=== PATIENT | male | born 1950 | race Caucasian/White ===

== ENCOUNTER 2016-12-12 08:26 | Outpatient (CLI) | payer MEDICARE, OTHER ==
[2015-10-23 16:41] VITALS: BP 147/79
== END 2016-12-12 08:27 ==
LOC: LAB 08:26
PROVIDERS: ATTEND Internal Medicine Cardiovascular Disease
DX: Z51.81 Encounter for therapeutic drug level monitoring (principal); Z95.2 Presence of prosthetic heart valve
CPT/HCPCS: 36415; 85610

== ENCOUNTER 2016-12-26 13:57 | Outpatient (CLI) | payer MEDICARE, OTHER ==
[2015-10-23 16:41] VITALS: BP 147/79
== END 2016-12-26 14:00 ==
LOC: LAB 13:57
PROVIDERS: ATTEND Internal Medicine Cardiovascular Disease
DX: Z95.2 Presence of prosthetic heart valve (principal); Z79.01 Long term (current) use of anticoagulants
CPT/HCPCS: 36415; 85610

== ENCOUNTER 2017-01-29 09:31 | Outpatient (CLI) | payer MEDICARE, OTHER ==
[2015-10-23 16:41] VITALS: BP 147/79
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
== END 2017-01-29 09:35 ==
LOC: RAD 09:31
PROVIDERS: ATTEND Physician Assistant
DX: M79.1 Myalgia (principal)
CPT/HCPCS: 73521

== ENCOUNTER 2017-01-30 10:05 | Outpatient (CLI) | payer MEDICARE, OTHER ==
[2015-10-23 16:41] VITALS: BP 147/79
== END 2017-01-30 11:00 ==
LOC: LAB 10:05
PROVIDERS: ATTEND Internal Medicine Cardiovascular Disease
DX: Z51.81 Encounter for therapeutic drug level monitoring (principal); Z79.01 Long term (current) use of anticoagulants; Z95.2 Presence of prosthetic heart valve
CPT/HCPCS: 36415; 85610

== ENCOUNTER 2017-02-14 10:31 | Outpatient (CLI) | payer MEDICARE, OTHER ==
[2015-10-23 16:41] VITALS: BP 147/79
== END 2017-02-14 10:32 ==
LOC: LAB 10:31
PROVIDERS: ATTEND Internal Medicine Cardiovascular Disease
DX: Z51.81 Encounter for therapeutic drug level monitoring (principal); Z79.01 Long term (current) use of anticoagulants; Z95.2 Presence of prosthetic heart valve
CPT/HCPCS: 36415; 85610

== ENCOUNTER 2017-03-20 10:42 | Outpatient (CLI) | payer MEDICARE, OTHER ==
[2015-10-23 16:41] VITALS: BP 147/79
== END 2017-03-20 10:43 ==
LOC: LAB 10:42
PROVIDERS: ATTEND Internal Medicine Cardiovascular Disease
DX: Z51.81 Encounter for therapeutic drug level monitoring (principal); Z79.01 Long term (current) use of anticoagulants; Z95.2 Presence of prosthetic heart valve
CPT/HCPCS: 36415; 85610

== ENCOUNTER 2017-05-01 13:10 | Outpatient (CLI) | payer MEDICARE, OTHER ==
[2015-10-23 16:41] VITALS: BP 147/79
== END 2017-05-01 13:11 ==
LOC: LAB 13:10
PROVIDERS: ATTEND Internal Medicine Cardiovascular Disease
DX: Z95.2 Presence of prosthetic heart valve (principal)
CPT/HCPCS: 36415; 85610

== ENCOUNTER 2017-06-08 10:30 | Outpatient (CLI) | payer MEDICARE, OTHER ==
[2015-10-23 16:41] VITALS: BP 147/79
== END 2017-06-08 10:32 ==
LOC: LAB 10:30
PROVIDERS: ATTEND Internal Medicine Cardiovascular Disease
DX: Z95.2 Presence of prosthetic heart valve (principal)
CPT/HCPCS: 36415; 85610

== ENCOUNTER 2017-07-17 14:12 | Outpatient (CLI) | payer MEDICARE, OTHER ==
[2015-10-23 16:41] VITALS: BP 147/79
== END 2017-07-17 14:13 ==
LOC: LAB 14:12
PROVIDERS: ATTEND Internal Medicine Cardiovascular Disease
DX: Z95.2 Presence of prosthetic heart valve (principal)
CPT/HCPCS: 36415; 85610

== ENCOUNTER 2017-08-14 12:21 | Outpatient (CLI) | payer MEDICARE, OTHER ==
[2015-10-23 16:41] VITALS: BP 147/79
== END 2017-08-14 12:22 ==
LOC: LAB 12:21
PROVIDERS: ATTEND Internal Medicine Cardiovascular Disease
DX: Z95.2 Presence of prosthetic heart valve (principal); Z79.01 Long term (current) use of anticoagulants
CPT/HCPCS: 36415; 85610

== ENCOUNTER 2017-09-26 09:49 | Outpatient (CLI) | payer MEDICARE, OTHER ==
[2015-10-23 16:41] VITALS: BP 147/79
== END 2017-09-26 09:50 ==
LOC: LAB 09:49
PROVIDERS: ATTEND Internal Medicine Cardiovascular Disease
DX: Z95.2 Presence of prosthetic heart valve (principal); Z79.01 Long term (current) use of anticoagulants
CPT/HCPCS: 36415; 85610

== ENCOUNTER 2017-11-07 09:27 | Outpatient (CLI) | payer MEDICARE, OTHER ==
[2015-10-23 16:41] VITALS: BP 147/79
== END 2017-11-07 11:13 ==
LOC: LAB 09:27
PROVIDERS: ATTEND Internal Medicine Cardiovascular Disease
DX: Z95.2 Presence of prosthetic heart valve (principal); Z51.81 Encounter for therapeutic drug level monitoring
CPT/HCPCS: 36415; 85610

== ENCOUNTER 2017-12-11 11:48 | Outpatient (CLI) | payer MEDICARE, OTHER ==
[2015-10-23 16:41] VITALS: BP 147/79
== END 2017-12-11 11:50 ==
LOC: CARD 11:48
PROVIDERS: ATTEND Internal Medicine Cardiovascular Disease
DX: Z95.2 Presence of prosthetic heart valve (principal); G47.30 Sleep apnea, unspecified
CPT/HCPCS: G0463

== ENCOUNTER 2017-12-25 11:16 | Outpatient (CLI) | payer MEDICARE, OTHER ==
[2015-10-23 16:41] VITALS: BP 147/79
== END 2017-12-25 11:17 ==
LOC: LAB 11:16
PROVIDERS: ATTEND Internal Medicine Cardiovascular Disease
DX: Z95.2 Presence of prosthetic heart valve (principal); Z51.81 Encounter for therapeutic drug level monitoring
CPT/HCPCS: 36415; 85610

== ENCOUNTER 2018-01-24 11:19 | Outpatient (CLI) | payer MEDICARE, OTHER ==
[2015-10-23 16:41] VITALS: BP 147/79
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
== END 2018-01-24 11:20 ==
LOC: RAD 11:19
PROVIDERS: ATTEND Physician Assistant
DX: M25.552 Pain in left hip (principal); M79.1 Myalgia

== ENCOUNTER 2018-02-07 14:32 | Outpatient (CLI) | payer MEDICARE, OTHER ==
[2015-10-23 16:41] VITALS: BP 147/79
== END 2018-02-07 14:44 ==
LOC: LAB 14:32
PROVIDERS: ATTEND Internal Medicine Cardiovascular Disease
DX: Z95.2 Presence of prosthetic heart valve (principal); Z79.899 Other long term (current) drug therapy
CPT/HCPCS: 36415; 85610

== ENCOUNTER 2018-02-15 13:52 | Outpatient (CLI) | payer MEDICARE, OTHER ==
[2015-10-23 16:41] VITALS: BP 147/79
== END 2018-02-15 13:53 ==
LOC: POD 13:52
PROVIDERS: ATTEND Podiatrist
DX: B07.0 Plantar wart (principal); B35.1 Tinea unguium; M79.674 Pain in right toe(s); M79.675 Pain in left toe(s)
CPT/HCPCS: 11721; G0463

== ENCOUNTER 2018-03-12 13:39 | Outpatient (CLI) | payer MEDICARE, OTHER ==
[2015-10-23 16:41] VITALS: BP 147/79
== END 2018-03-12 13:40 ==
LOC: POD 13:39
PROVIDERS: ATTEND Podiatrist
DX: B07.0 Plantar wart (principal); B35.1 Tinea unguium; M79.674 Pain in right toe(s); M79.675 Pain in left toe(s)
CPT/HCPCS: G0463

== ENCOUNTER 2018-03-26 09:47 | Outpatient (CLI) | payer MEDICARE, OTHER ==
[2015-10-23 16:41] VITALS: BP 147/79
== END 2018-03-26 09:50 ==
LOC: LAB 09:47
PROVIDERS: ATTEND Internal Medicine Cardiovascular Disease
DX: Z95.2 Presence of prosthetic heart valve (principal); Z79.899 Other long term (current) drug therapy
CPT/HCPCS: 36415; 85610

== ENCOUNTER 2018-05-14 13:52 | Outpatient (CLI) | payer MEDICARE, OTHER ==
[2015-10-23 16:41] VITALS: BP 147/79
== END 2018-05-14 13:53 ==
LOC: LAB 13:52
PROVIDERS: ATTEND Internal Medicine Cardiovascular Disease
DX: Z95.2 Presence of prosthetic heart valve (principal); Z79.01 Long term (current) use of anticoagulants
CPT/HCPCS: 36415; 85610

== ENCOUNTER 2018-06-19 10:50 | Outpatient (CLI) | payer MEDICARE, OTHER ==
[2015-10-23 16:41] VITALS: BP 147/79
== END 2018-06-19 10:53 ==
LOC: LAB 10:50
PROVIDERS: ATTEND Internal Medicine Cardiovascular Disease
DX: Z95.2 Presence of prosthetic heart valve (principal); Z79.01 Long term (current) use of anticoagulants
CPT/HCPCS: 36415; 85610

== ENCOUNTER 2018-07-16 09:21 | Outpatient (CLI) | payer MEDICARE, OTHER ==
[2015-10-23 16:41] VITALS: BP 147/79
== END 2018-07-16 09:22 ==
LOC: LAB 09:21
PROVIDERS: ATTEND Physician Assistant
DX: Z79.1 Long term (current) use of non-steroidal anti-inflammatories (NSAID) (principal); Z95.2 Presence of prosthetic heart valve
CPT/HCPCS: 36415; 85610

== ENCOUNTER 2018-07-22 09:21 | Outpatient (CLI) | payer MEDICARE, OTHER ==
[2015-10-23 16:41] VITALS: BP 147/79
== END 2018-07-22 09:23 ==
LOC: LAB 09:21
PROVIDERS: ATTEND Internal Medicine Cardiovascular Disease
DX: Z79.01 Long term (current) use of anticoagulants (principal); Z95.2 Presence of prosthetic heart valve
CPT/HCPCS: 36415; 85610

== ENCOUNTER 2018-08-01 10:33 | Outpatient (CLI) | payer MEDICARE, OTHER ==
[2015-10-23 16:41] VITALS: BP 147/79
== END 2018-08-01 10:35 ==
LOC: LAB 10:33
PROVIDERS: ATTEND Internal Medicine Cardiovascular Disease
DX: Z95.2 Presence of prosthetic heart valve (principal); Z79.01 Long term (current) use of anticoagulants
CPT/HCPCS: 36415; 85610

== ENCOUNTER 2018-08-26 10:28 | Outpatient (CLI) | payer MEDICARE, OTHER ==
[2015-10-23 16:41] VITALS: BP 147/79
== END 2018-08-26 10:30 ==
LOC: LAB 10:28
PROVIDERS: ATTEND Internal Medicine Cardiovascular Disease
DX: Z95.2 Presence of prosthetic heart valve (principal); Z79.01 Long term (current) use of anticoagulants
CPT/HCPCS: 36415; 85610

== ENCOUNTER 2018-09-19 10:13 | Outpatient (CLI) | payer MEDICARE, OTHER ==
[2015-10-23 16:41] VITALS: BP 147/79
== END 2018-09-19 15:26 ==
LOC: LAB 10:13
PROVIDERS: ATTEND Internal Medicine Cardiovascular Disease
DX: Z95.2 Presence of prosthetic heart valve (principal); Z79.01 Long term (current) use of anticoagulants
CPT/HCPCS: 36415; 85610

== ENCOUNTER 2018-10-21 08:47 | Outpatient (CLI) | payer MEDICARE, OTHER ==
[2015-10-23 16:41] VITALS: BP 147/79
== END 2018-10-21 08:50 ==
LOC: LAB 08:47
PROVIDERS: ATTEND Internal Medicine Cardiovascular Disease
DX: Z95.2 Presence of prosthetic heart valve (principal)
CPT/HCPCS: 36415; 85610

== ENCOUNTER 2018-11-27 11:02 | Outpatient (CLI) | payer MEDICARE, OTHER ==
[2015-10-23 16:41] VITALS: BP 147/79
== END 2018-11-27 11:04 ==
LOC: LAB 11:02
PROVIDERS: ATTEND Internal Medicine Cardiovascular Disease
DX: Z79.01 Long term (current) use of anticoagulants (principal)
CPT/HCPCS: 36415; 85610

== ENCOUNTER 2018-12-18 09:57 | Outpatient (CLI) | payer OTHER ==
[2015-10-23 16:41] VITALS: BP 147/79
== END 2018-12-18 10:10 ==
LOC: LAB 09:57
PROVIDERS: ATTEND Internal Medicine Cardiovascular Disease
DX: Z95.2 Presence of prosthetic heart valve (principal); Z79.01 Long term (current) use of anticoagulants; Z51.81 Encounter for therapeutic drug level monitoring
CPT/HCPCS: 36415; 85610

== ENCOUNTER 2019-01-22 10:13 | Outpatient (CLI) | payer OTHER ==
[2015-10-23 16:41] VITALS: BP 147/79
== END 2019-01-22 10:15 ==
LOC: LAB 10:13
PROVIDERS: ATTEND Internal Medicine Cardiovascular Disease
DX: Z79.01 Long term (current) use of anticoagulants (principal); Z95.2 Presence of prosthetic heart valve
CPT/HCPCS: 36415; 85610

== ENCOUNTER 2019-02-20 13:11 | Outpatient (CLI) | payer OTHER ==
[2015-10-23 16:41] VITALS: BP 147/79
== END 2019-02-20 13:13 ==
LOC: LAB 13:11
PROVIDERS: ATTEND Internal Medicine Cardiovascular Disease
DX: Z79.01 Long term (current) use of anticoagulants (principal); Z95.2 Presence of prosthetic heart valve
CPT/HCPCS: 36415; 85610

== ENCOUNTER 2019-02-26 12:01 | Outpatient (CLI) | payer OTHER ==
[2015-10-23 16:41] VITALS: BP 147/79
== END 2019-02-26 12:03 ==
LOC: LAB 12:01
PROVIDERS: ATTEND Internal Medicine Cardiovascular Disease
DX: Z79.01 Long term (current) use of anticoagulants (principal); Z95.2 Presence of prosthetic heart valve
CPT/HCPCS: 36415; 85610

== ENCOUNTER 2019-03-13 08:29 | Outpatient (CLI) | payer OTHER ==
[2015-10-23 16:41] VITALS: BP 147/79
== END 2019-03-13 08:32 ==
LOC: LAB 08:29
PROVIDERS: ATTEND Internal Medicine Cardiovascular Disease
DX: Z79.01 Long term (current) use of anticoagulants (principal); Z95.2 Presence of prosthetic heart valve
CPT/HCPCS: 36415; 85610

== ENCOUNTER 2019-04-07 14:38 | Outpatient (CLI) | payer OTHER ==
[2015-10-23 16:41] VITALS: BP 147/79
== END 2019-04-07 14:40 ==
LOC: LAB 14:38
PROVIDERS: ATTEND Internal Medicine Cardiovascular Disease
DX: Z79.01 Long term (current) use of anticoagulants (principal); Z95.2 Presence of prosthetic heart valve
CPT/HCPCS: 36415; 85610

== ENCOUNTER 2019-05-07 09:36 | Outpatient (CLI) | payer OTHER ==
[2015-10-23 16:41] VITALS: BP 147/79
== END 2019-05-07 09:41 | disposition home or self-care (01) ==
LOC: LAB 09:36
PROVIDERS: ATTEND Internal Medicine Cardiovascular Disease
DX: Z51.81 Encounter for therapeutic drug level monitoring (principal); Z79.01 Long term (current) use of anticoagulants; Z95.2 Presence of prosthetic heart valve
CPT/HCPCS: 36415; 85610

== ENCOUNTER 2019-06-04 13:40 | Outpatient (CLI) | payer OTHER ==
[2015-10-23 16:41] VITALS: BP 147/79
== END 2019-06-04 13:42 ==
LOC: LAB 13:40
PROVIDERS: ATTEND Internal Medicine Cardiovascular Disease
DX: Z79.01 Long term (current) use of anticoagulants (principal); Z51.81 Encounter for therapeutic drug level monitoring; Z95.2 Presence of prosthetic heart valve
CPT/HCPCS: 36415; 85610

== ENCOUNTER 2019-08-01 10:42 | Outpatient (CLI) | payer OTHER ==
[2015-10-23 16:41] VITALS: BP 147/79
== END 2019-08-01 11:00 ==
LOC: LAB 10:42
PROVIDERS: ATTEND Family Medicine
DX: Z51.81 Encounter for therapeutic drug level monitoring (principal); Z79.899 Other long term (current) drug therapy
CPT/HCPCS: 36415; 85610

== ENCOUNTER 2019-08-07 10:48 | Emergency (ER) | payer MEDICARE, OTHER ==
[2019-08-07 11:12] LABS: BASOPHILS % 0.6 % (0.0-1.5); NEUTROPHILS # 3.3 # k/uL (1.4-7.7)
[2019-08-07 11:26] LABS: eGFR (Non-African) > 60
--- NOTE | 2019-08-07 11:30 | ED Physician Documentation ---
General Adult - HISTORIAN Historian: patient - HPI Stated Complaint: dizziness,weakness Chief Complaint: General Adult Additional Information: Patient is a 69-year old male who ambulated into the ER with c/o dizziness, weakness, sweating, nausea and right flank pain. 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 Patient states that be was unable to have bowel movement this AM. Son states that he probably over did last night- patient states that he was working on the tractor; patient states he pulled a muscle in his leg last night while working under the tractor. Patient denies any chest pain or shortness of breath. Onset: hours Timing: better Severity: mild Modifying Factors: Heat (3 cups of coffee; 2 glasses of water) - ROS CONST: sweating, weakness EYES/ENT: none CVS/RESP: none GI/: nausea MS/SKIN/LYMPH: leg pain NEURO/PSYCH: dizziness, difficulty walking - PAST HX Past History: other (mechanical valve) Other History: seizure disorder (Many years since last seizure (mild)), other (Basal cell carcinoma on scalp) Surgeries/Procedures: other (RTC, mechanical valve) Immunizations: UTD Allergies/Adverse Reactions: Allergies Allergy/AdvReac Type Severity Reaction Status Date / Time No Known Drug Allergies Allergy Verified 08/07/19 11:24 Home Medications: Ambulatory Orders Medication Instructions Recorded Lamotrigine 400 mg PO DAILY u2 06/22/16 Multivitamin [Daily Kristina] 1 each PO DAILY u2 06/22/16 [place]-3/Dha/Epa/Fish Oil [Fish Oil] 500 mg PO DAILY 06/22/16 Omeprazole 20 mg PO DAILY u2 06/22/16 Warfarin Sodium 3.5 mg PO DAILY 08/07/19 - SOCIAL HX Smoking History: non-smoker Alcohol Use: rarely Drug Use: none - FAMILY HX Family History: No - VITAL SIGNS Vital Signs: Vital Signs Temp Pulse Resp BP Pulse Ox 73 147/79 08/07/19 11:04 10/23/15 16:44 - REVIEWED ASSESSMENTS Nursing Assessment Reviewed: Yes Vitals Reviewed: Yes ED Results Lab/Radiology - Lab Results Lab Results: Lab Results 08/07/19 08/07/19 08/07/19 11:10 11:10 11:10 WBC 5.00 K/ul K/ul (4.00-12.00) RBC 4.27 M/ul M/ul (3.90-5.20) Hgb 15.2 g/dL g/dL (12.0-18.0) Hct 43.9 % % (37.0-53.0) MCV 103.0 fl H fl (80.0-100.0) MCH 35.5 pg H pg (28.0-34.0) MCHC 34.5 g/dL g/dL (30.0-36.0) RDW 12.0 % % (11.3-14.3) Plt Count 197 K/mm3 K/mm3 (130-400) Neut % (Auto) 66.7 % % (39.0-79.0) Lymph % (Auto) 21.4 % % (16.0-50.0) [place] % (Auto) 9.0 % % (0.0-11.0) Eos % (Auto) 2.3 % % (0.0-6.8) Baso % (Auto) 0.6 % % (0.0-1.5) Neut # (Auto) 3.3 # k/uL # k/uL (1.4-7.7) Lymph # (Auto) 1.1 # k/uL # k/uL (0.6-4.0) [place] # (Auto) 0.5 # k/uL # k/uL (0.0-0.9) Eos # (Auto) 0.1 # k/uL # k/uL (0.0-0.6) Baso # (Auto) 0.0 # k/uL # k/uL (0.0-0.5) PT 38.2 Seconds H Seconds (8.8-11.9) INR 3.72 H (0.80-1.10) Sodium 143 mmol/L mmol/L (137-145) Potassium 3.8 mmol/L mmol/L (3.5-5.1) Chloride 105 mmol/L mmol/L (98-107) Carbon Dioxide 26 mmol/L mmol/L (22-30) Anion Gap 15.8 BUN 20 mg/dL mg/dL (9-20) Creatinine 0.86 mg/dL mg/dL (0.66-1.25) Estimated Creat Clear 116 Est GFR ( Amer) > 60 (60 - ) Est GFR (Non-Af Amer) > 60 (60 - ) Glucose 122 mg/dL H mg/dL (74-106) Calcium 9.1 mg/dL mg/dL (8.4-10.2) Total Bilirubin 0.7 mg/dL mg/dL (0.2-1.3) AST 23 U/L U/L (15-46) ALT 25 U/L U/L (13-69) Alkaline Phosphatase 79 U/L U/L (38-126) Total Protein 6.6 g/dL g/dL (6.3-8.2) Albumin 4.2 g/dL g/dL (3.5-5.0) - Radiology Radiology Impressions: Examination: CT Abdomen/pelvis History: RT SIDED FLANK PAIN THIS MORNING, BLOOD IN URINE Comparison exams: None available Technique: CT Abdomen/pelvis without IV protocol. Findings: Just within the bladder near the region of the right ureterovesicular junction a 3 mm calcification. Dilation of the right ureter. No central calcification. No suspicious renal calcifications bilaterally. Left ureter without abnormal dilation or calcification. Remainder of the bladder mucosa/lumen without gross a regular d. Liver, spleen, adrenals, pancreas and gallbladder are without gross irregularity given exam technique. No gallstone. Abdominal aorta without aneurysm. Peripheral atherosclerotic disease. Cardiac silhouette is not enlarged. No pericardial effusion. Bowel unopacified limiting evaluation. No abnormal dilation. Stool within the large bowel limiting sensitivity. No mesenteric inflammatory changes or free fluid. Appendix region without inflammatory changes. Osseous structures demonstrate degenerative changes. Lung bases demonstrates linear atelectasis. No effusion. Impression: 3 mm calcification within the posterior margin of the bladder near the right uretrovesicular junction consistent with a recently passed ureterolithiasis. Residual dilation of the right ureter. No nephrolithiasis. No acute upper abdominal organ inflammatory process. No abnormal bowel dilation or inflammation. No gallstone. Bilateral atelectasis/infiltrates without effusion. - Orders Orders: ED Orders Category Date Time Status Continuous EKG monitoring Q30M Care 08/07/19 11:[address] IV Lock 1T Care 08/07/19 11:03 Active CBC/PLATELET/DIFF Stat Lab 08/07/19 11:10 Completed CMP [CMP] Stat Lab 08/07/19 11:10 Completed PT-INR Routine Lab 08/07/19 11:10 Completed TROPONIN I Stat Lab 08/07/19 11:10 Received 0.9 % Sodium Chloride [Normal Saline] 1,000 ml Med 08/07/19 11:16 Active IV Q1H EKG WITH COMPARISON Stat Ther 08/07/19 Ordered General Adult Physical Exam - PHYSICAL EXAM GENERAL APPEARANCE: mild distress EENT: eye inspection normal, ENT inspection normal, pharynx normal, CORI, dry mucous membranes NECK: normal inspection, supple RESPIRATORY: chest non-tender, breath sounds normal CVS: reg rate & rhythm, heart sounds normal (Mechanical valve), equal pulses, no JVD ABDOMEN: soft, normal bowel sounds SKIN: warm/dry, pallor EXTREMITIES: non-tender, normal range of motion NEURO: oriented X3, CN's nml as tested, motor nml, sensation nml, mood/affect nml, cognition normal Discharge Clincal Impression: Renal colic Referrals: Briana Baker MD [Primary Care Provider] - 2 Days Additional Instructions: MUST drink at LEAST 8 8oz glasses of water daily; drink until urine is a pale yellow Avoid the heat/humidity at least 48 hours Follow up with PCP next week for re-evaluation Condition: Good Disposition: 01 HOME, SELF-CARE Decision to Admit: NO Decision Time: 13:52
[2019-08-07] MEDS: 0.9 % SODIUM CHLORIDE 1,000 ML IV ONE (11:40)
[2019-08-07 13:58] LABS: APPEARANCE,URINE CLEAR (CLEAR); COLOR,URINE AMBER (YELLOW); OCCULT BLOOD,URINE 2+ (NEGATIVE); PH URINE 5.5 (5.0 - 8.0)
[2019-08-07 14:09] VITALS: BP 140/74
--- NOTE | 2019-08-14 09:24 | Diagnostic Imaging Report ---
HILARY SILVA ED [facility] [address] [facility] [address] [place], [place]. [address] Report Submission Date: Aug 07, 2019 12:38:56 PM CDT Patient Study Name: MARY LUNA Date: Aug 07, 2019 11:46:53 AM CDT Modality Type: CT\SR Gender: M Description: CT ABD PELVIS W/O CO : 46 Institution: [facility] Physician: HILARY SILVA ED Examination: CT Abdomen/pelvis History: RT SIDED FLANK PAIN THIS MORNING, BLOOD IN URINE Comparison exams: None available Technique: CT Abdomen/pelvis without IV protocol. Findings: Just within the bladder near the region of the right ureterovesicular junction a 3 mm calcification. Dilation of the right ureter. No central calcification. No suspicious renal calcifications bilaterally. Left ureter without abnormal dilation or calcification. Remainder of the bladder mucosa/lumen without gross a regular d. Liver, spleen, adrenals, pancreas and gallbladder are without gross irregularity given exam technique. No gallstone. Abdominal aorta without aneurysm. Peripheral atherosclerotic disease. Cardiac silhouette is not enlarged. No pericardial effusion. Bowel unopacified limiting evaluation. No abnormal dilation. Stool within the large bowel limiting sensitivity. No mesenteric inflammatory changes or free fluid. Appendix region without inflammatory changes. Osseous structures demonstrate degenerative changes. Lung bases demonstrates linear atelectasis. No effusion. Impression: 3 mm calcification within the posterior margin of the bladder near the right uretrovesicular junction consistent with a recently passed ureterolithiasis. Residual dilation of the right ureter. No nephrolithiasis. No acute upper abdominal organ inflammatory process. No abnormal bowel dilation or inflammation. No gallstone. Bilateral atelectasis/infiltrates without effusion. Electronically signed on Aug 07, 2019 12:38:56 PM CDT by: Matt CHAMORRO
== END 2019-08-07 13:48 | disposition home or self-care (01) ==
LOC: ED 10:48
DX: N23 Unspecified renal colic (principal)
CPT/HCPCS: 74176; 80053; 81002; 84484; 85025; 85610; 93005; 96360; 99284; J7030; S1016

== ENCOUNTER 2019-08-21 09:52 | Outpatient (CLI) | payer OTHER | END 2019-08-21 09:54 | LOC: LAB 09:52 | PROVIDERS: ATTEND Internal Medicine Cardiovascular Disease | DX: Z51.81 Encounter for therapeutic drug level monitoring (principal); Z79.01 Long term (current) use of anticoagulants; Z95.2 Presence of prosthetic heart valve | CPT/HCPCS: 36415; 85610 ==